=== PATIENT | male | born 1960 | race African-American/Black ===

== ENCOUNTER 2018-10-21 22:31 | Inpatient (IN) | payer OTHER ==
[2018-10-21] MEDS ORDERED: Nitroglycerin 2% Ointment 1 INCH/1 GM Packet ONE (23:02)
[2018-10-21 23:05] LABS: #Eosinphils 0.1 thou/uL (0.0-0.7); #Lymphocytes 2.5 thou/uL (1.20-3.40); #Monocytes 0.9 thou/uL (0.11-0.59); #Neutrophils 11.2 thou/uL (1.40-6.50); %Basophils 0.2 % (0.0-1.0); %Eosinophils 0.4 % (0.0-10.0); %Lymphocytes 17.1 % (21.0-51.0); %Monocytes 6.4 % (0.0-10.0); %Neutrophils 75.9 % (42.0-75.0); Hemoglobin 9.5 g/dL (14.0-18.0); Mean Corpuscular HGB CONC 31.4 g/dL (32.0-36.0); Mean Corpuscular Hemoglobin 25.1 pg (27.0-31.0); Mean Platelet Volume 6.9 fL (7.4-10.4); Platelet Count 594 thou/uL (130-400); RBC Distribution Width 15.9 % (11.5-14.5); Red Blood Cell (RBC) Count 3.79 mill/uL (4.70-6.10); White Blood Cell (WBC) Count 14.8 thou/uL (4.8-10.8)
[2018-10-21 23:23] LABS: ALT (SGPT) 19 U/L (8-55); AST (SGOT) 19 U/L (5-34); Albumin 3.5 g/dL (3.5-5.0); Alkaline Phosphatase 92 U/L (40-150); Anion Gap 17 mmol/L (10-20); BUN (Urea Nitrogen) 9 mg/dL (8.4-25.7); Bilirubin, Total 0.4 mg/dL (0.2-1.2); CK (CPK) 153 U/L (30-200); Calc. Creatinine Clearance 0 mL/min (70-130); Calcium 9.7 mg/dL (7.8-10.44); Carbon Dioxide 24 mmol/L (22-29); Chloride 103 mmol/L (98-107); Estimated GFR-MDRD Greater than 90; Globulin 4.4 g/dL (2.4-3.5); Glucose 85 mg/dL (70-105); Protein, Total 7.9 g/dL (6.0-8.3); Sodium 141 mmol/L (136-145)
--- NOTE | 2018-10-21 23:33 | RAD ---
PORTABLE AP CHEST X-RAY 10/21/18 HISTORY: Chest pain with history of [place]. COMPARISON: None available. FINDINGS: The cardiac silhouette and pulmonary vasculature are within normal limits for the portable technique of the study. Postsurgical changes related to CABG are again noted. Lungs are clear. Osseous structur es are intact. IMPRESSION: No acute cardiopulmonary process. POS: [facility]
[2018-10-21 23:48] LABS: CKMB 1.5 ng/mL (0-6.6)
[2018-10-22] MEDS ORDERED: HumaLOG 300 UNITS/3 ML VIAL SC PRN (01:42)
[2018-10-22] MEDS ORDERED: Dextrose 5% in Water 1,000 ML IV PRN (01:42)
[2018-10-22] MEDS ORDERED: Dextrose 50% Abboject 50 ML SYRINGE SLOW IVP PRN (01:42)
[2018-10-22] MEDS ORDERED: Acetaminophen 325 MG TAB PO PRN (02:30)
[2018-10-22] MEDS ORDERED: Sodium Chloride 0.9% 1,000 ML IV SCH (02:30)
[2018-10-22] MEDS ORDERED: Ondansetron ODT 4 MG TAB SL PRN (02:30)
[2018-10-22] MEDS ORDERED: Ondansetron PF 4 MG/2 ML Vial IVP PRN (02:30)
[2018-10-22 02:31] LABS: Critical Call Chem Troponin I RESULT DECREASING
[2018-10-22] MEDS ORDERED: Morphine 2 MG/ML SYRINGE SLOW IVP SCH (02:45)
--- NOTE | 2018-10-22 03:02 | HP ---
PRIMARY CARE DOCTOR: Patient is in alf. CODE STATUS: Full code. TIME OF EVALUATION: 1:30 a.m. CHIEF COMPLAINT: Chest pain. HISTORY OF PRESENT ILLNESS: This is a 58-year-old male patient, past medical history of coronary artery disease, status post CABG in March 2016. Patient came to the hospital after having chest pain that started around 7 p.m. when he was resting. No clear triggers. No alleviating factors. The pain was severe, substernal. The patient reported has not followed with a adobe cq developer as he does not have a adobe cq developer here. He also has a history of diabetes, hypertension, and severe peripheral vascular disease, and plan for amputation of the right lower extremity next week due to dry gangrene. REVIEW OF SYSTEMS: CONSTITUTIONAL: No fever, chills, or generalized weakness. RESPIRATORY: No cough, sputum production, or shortness of breath. CARDIOVASCULAR: Patient denies chest pain. No palpitations. GASTROINTESTINAL: No nausea, vomiting, diarrhea, or abdominal pain. SOUND CUTTER: No dizziness, headache, or feeling lightheaded. GENITOURINARY: No burning on urination. EXTREMITIES: No leg swelling. All other systems were reviewed and negative, except for the findings mentioned above. PAST MEDICAL HISTORY: As mentioned in the HPI. FAMILY HISTORY: Positive for father and grandfather with diabetes and heart problems. SOCIAL HISTORY: Patient is in alf. No drugs. No alcohol. ALLERGIES: NO KNOWN DRUG ALLERGIES REPORTED. MEDICATIONS: Unknown. PHYSICAL EXAMINATION: VITAL SIGNS: Heart rate 86, respiratory rate was 18, pain was 4/10, oxygen saturation was 99 on room air, and blood pressure 138/80. GENERAL APPEARANCE: The patient is alert, oriented, not in acute distress. HEENT: Eyes, normal conjunctivae. Moist oral mucosa. Anicteric. No JVD. RESPIRATORY: Bilateral air entry. No rales. No wheezes. Symmetric expansion. CARDIOVASCULAR: Normal rate, regular rhythm. No murmurs. No gallop. No edema. ABDOMEN: Soft. Normal bowel sounds. MUSCULOSKELETAL: Baseline range of motion and strength, except for the right lower extremity, there is a graft. The patient has dry gangrene due to severe PVD and is scheduled for amputation next week. SKIN: Warm, intact. No pallor. No rash, except for description in musculoskeletal section. Peripheral pulses are present. Capillary refill seems to be intact. NEUROLOGIC: No evidence of any new focal weakness. Patient has decreased sensation in the lower extremities. Cranial nerve seems to be intact. PSYCH: Patient is in good mood. No anxiety. Oriented, optimal judgment. DIAGNOSTIC DATA: EKG, patient has normal sinus rhythm with left ventricular hypertrophy with repolarization abnormalities. Ventricular rate 85, IL 126, QRS 88, QT corrected 471. Chest x-ray was reviewed. The patient has no acute cardiopulmonary process. The labs were reviewed. The patient has white count of 14.8, hemoglobin 9.5, MCV 80, and platelet count 494. Chemistry; sodium 141, potassium 3.0, chloride 103, carbon dioxide 24, anion gap 17, BUN 9, creatinine 0.7, GFR greater than 90, glucose 85, calcium 9.7, total bilirubin 0.4, AST 19, ALT 19, alkaline phosphatase is 92. CK 153 with troponin 0.342 that is a first draw. Serum total protein 7.9, albumin 3.5, globulin 4.4, albumin-globulin ratio is 0.8. ASSESSMENT AND PLAN: The patient had been placed in the hospital with the following medical problems: 1. Chest pain, rule out acute coronary syndrome. Patient has a strong history of previous coronary artery bypass graft, severe peripheral vascular disease, troponin 0.3. We will trend troponin. Might need Cardiology evaluation if his troponin continues to be positive. We will reconcile home medications, we will adjust treatment as needed. 2. Leukocytosis of unclear etiology. White count is 14.8. Patient does not have any evidence of sepsis at this point, could be related to underlying infections and dry gangrene or related to acute. 3. Chest pain. We will monitor, we will treat accordingly. 4. Normocytic anemia, unclear etiology. We will monitor. No need for any acute intervention at this time. 5. Hypokalemia with potassium 3.0. This is mild, we will replace electrolytes as needed. 6. Hbr-WA-hszdmtsjx myocardial infarction. Patient has troponin 0.342, we will trend troponin given his strong previous history of coronary artery disease. Unclear if this is type 1 or type 2 acute myocardial infarction. We will adjust treatment accordingly. 7. History of diabetes, seems to be controlled. We will place the patient on sliding scale. 8. Controlled hypertension. We will monitor: We will reconcile home medications once updated. Treat accordingly. 9. Deep venous thrombosis prophylaxis. 10. Severe peripheral vascular disease with dry gangrene. Plan for amputation of the right lower extremity a week from now, we will monitor, no need for any acute intervention at this point since the patient is scheduled with surgeons for next week. Job ID: [id number]
[2018-10-22] MEDS ORDERED: Sodium Chloride 0.9% 10 ML ONE (03:21)
[2018-10-22 05:33] LABS: Troponin I 0.248 ng/mL (< 0.028)
[2018-10-22] MEDS ORDERED: Aspirin 325 MG TAB PO SCH (08:00)
[2018-10-22] MEDS ORDERED: Non-Formulary Item 1 EACH (Atorvastatin Calcium [Atorvastatin Calcium] 80 MG) PO SCH (09:00)
[2018-10-22] MEDS ORDERED: Non-Formulary Item 1 EACH (Ferrous Sulfate [Ferrous Sulfate] 325 MG) PO SCH (09:00)
[2018-10-22] MEDS ORDERED: SODIUM HYPOCHLORITE TOP SCH (09:00)
[2018-10-22] MEDS ORDERED: Carvedilol 25 MG TAB PO SCH (09:00)
[2018-10-22] MEDS ORDERED: Aspirin 81 mg Enteric Coated Tablet PO SCH (09:00)
[2018-10-22] MEDS ORDERED: Hydrochlorothiazide 25 MG TAB PO SCH (09:00)
[2018-10-22] MEDS ORDERED: Potassium Chloride 20 MEQ TAB PO SCH (09:00)
[2018-10-22] MEDS ORDERED: Non-Formulary Item 1 EACH (Ranitidine Hcl [Ranitidine Hcl] 150 MG) PO SCH (09:00)
[2018-10-22] MEDS: Docusate 100 MG CAP PO SCH ×2 (09:19→20:43)
[2018-10-22] MEDS: Famotidine 20 MG TAB PO SCH ×2 (09:19→20:44)
[2018-10-22] MEDS: Amlodipine 10 MG TAB PO SCH (09:19)
[2018-10-22] MEDS: DULoxetine 60 MG CAP PO SCH (09:19)
[2018-10-22] MEDS: Folic Acid 1 MG TAB PO SCH (09:20)
[2018-10-22] MEDS: Lisinopril 20 MG TAB PO SCH (09:20)
[2018-10-22] MEDS: Ferrous Sulfate 325 MG TAB PO SCH ×3 (09:20→20:44)
[2018-10-22] MEDS: Morphine 2 MG/ML SYRINGE SLOW IVP PRN ×3 (09:21→20:45)
[2018-10-22 09:57] LABS: Magnesium 1.8 mg/dL (1.6-2.6); Potassium 3.2 mmol/L (3.5-5.1)
[2018-10-22] MEDS: NPH, Human Insulin Isophane 300 UNIT/3 ML VIAL SC SCH ×2 (12:25→20:45)
[2018-10-22] MEDS: TICAGRELOR 90 MG TABLET PO SCH ×2 (12:27→20:43)
[2018-10-22] MEDS: Potassium Chloride 20 MEQ TAB PO SCH ×2 (12:34→16:08)
[2018-10-22] MEDS: HYDROcodone/Acetaminophen 5/325 mg Tablet PO PRN ×3 (12:34→23:11)
[2018-10-22 14:45] LABS: CKMB 1.2 ng/mL (0-6.6)
[2018-10-22] MEDS ORDERED: Labetalol HCl 100 MG/20 ML VIAL SLOW IVP PRN (16:53)
[2018-10-22] MEDS: Carvedilol 25 MG TAB PO SCH (20:43)
[2018-10-22] MEDS: Atorvastatin Calcium 40 MG TAB PO SCH (20:44)
[2018-10-23] MEDS: Morphine 2 MG/ML SYRINGE SLOW IVP PRN ×2 (03:10→08:55)
[2018-10-23 05:36] LABS: Anion Gap 15 mmol/L (10-20); BUN (Urea Nitrogen) 11 mg/dL (8.4-25.7); Calc. Creatinine Clearance 114 mL/min (70-130); Calcium 9.6 mg/dL (7.8-10.44); Carbon Dioxide 20 mmol/L (22-29); Chloride 103 mmol/L (98-107); Estimated GFR-MDRD Greater than 90; Glucose 98 mg/dL (70-105); Potassium 4.2 mmol/L (3.5-5.1); Sodium 134 mmol/L (136-145)
[2018-10-23] MEDS: HYDROcodone/Acetaminophen 5/325 mg Tablet PO PRN ×4 (06:38→20:33)
[2018-10-23] MEDS ORDERED: Sodium Chloride 0.65% Nasal 44 ML BOT EA NARE PRN (07:21)
[2018-10-23] MEDS ORDERED: Loperamide HCl 2 MG CAP PO PRN (07:21)
[2018-10-23] MEDS ORDERED: Senokot S 8.6-50 MG TAB PO PRN (07:21)
[2018-10-23] MEDS ORDERED: Bisacodyl 5 MG TAB PO PRN (07:21)
[2018-10-23] MEDS ORDERED: Acetaminophen 500 MG TAB PO PRN (07:21)
[2018-10-23] MEDS ORDERED: Nitroglycerin 0.4 MG TAB (25 Tab Bottle) SL PRN (07:21)
[2018-10-23] MEDS ORDERED: Loratadine 10 MG TAB PO PRN (07:21)
[2018-10-23] MEDS ORDERED: Cepastat Lozenges 1 LOZ PO PRN (07:21)
[2018-10-23] MEDS ORDERED: hydrALAZINE 20 MG/ML VIAL SLOW IVP PRN (07:21)
[2018-10-23] MEDS ORDERED: Zolpidem Tartrate 5 MG TAB PO PRN (07:21)
[2018-10-23] MEDS ORDERED: Ondansetron ODT 4 MG TAB PO PRN (07:21)
[2018-10-23] MEDS ORDERED: Ondansetron PF 4 MG/2 ML Vial IVP PRN (07:21)
[2018-10-23] MEDS ORDERED: Artificial Tears 18 DROP/0.9 ML EA EYE PRN (07:21)
[2018-10-23] MEDS ORDERED: Eucerin (Mineral Oil/Petrolatum,White) 30 gm Jar TOP PRN (07:21)
[2018-10-23] MEDS ORDERED: Diabetic Tussin 200 MG/10 ML UDCUP PO PRN (07:21)
[2018-10-23 08:31] LABS: #Eosinphils 0.1 thou/uL (0.0-0.7); #Lymphocytes 2.3 thou/uL (1.20-3.40); #Monocytes 1.2 thou/uL (0.11-0.59); #Neutrophils 9.6 thou/uL (1.40-6.50); %Basophils 0.2 % (0.0-1.0); %Eosinophils 0.4 % (0.0-10.0); %Lymphocytes 17.6 % (21.0-51.0); %Monocytes 8.9 % (0.0-10.0); %Neutrophils 72.9 % (42.0-75.0); Hemoglobin 9.7 g/dL (14.0-18.0); Mean Corpuscular HGB CONC 31.2 g/dL (32.0-36.0); Mean Corpuscular Hemoglobin 25.1 pg (27.0-31.0); Mean Corpuscular Volume 80.5 fL (78.0-98.0); Mean Platelet Volume 7.1 fL (7.4-10.4); Platelet Count 525 thou/uL (130-400); RBC Distribution Width 16.4 % (11.5-14.5); Red Blood Cell (RBC) Count 3.86 mill/uL (4.70-6.10); White Blood Cell (WBC) Count 13.2 thou/uL (4.8-10.8)
[2018-10-23] MEDS: Lisinopril 20 MG TAB PO SCH ×2 (08:53→20:32)
[2018-10-23] MEDS: Ferrous Sulfate 325 MG TAB PO SCH ×3 (08:53→20:32)
[2018-10-23] MEDS: Carvedilol 25 MG TAB PO SCH ×2 (08:53→20:33)
[2018-10-23] MEDS: Docusate 100 MG CAP PO SCH ×2 (08:54→20:34)
[2018-10-23] MEDS: Amlodipine 10 MG TAB PO SCH (08:54)
[2018-10-23] MEDS: TICAGRELOR 90 MG TABLET PO SCH (08:54)
[2018-10-23] MEDS: DULoxetine 60 MG CAP PO SCH (08:54)
[2018-10-23] MEDS: Folic Acid 1 MG TAB PO SCH (08:54)
[2018-10-23] MEDS: Famotidine 20 MG TAB PO SCH ×2 (08:54→20:32)
[2018-10-23] MEDS: NPH, Human Insulin Isophane 300 UNIT/3 ML VIAL SC SCH ×2 (09:46→20:40)
--- NOTE | 2018-10-23 10:11 | PDOC.PN ---
- Subjective Encounter Start Date: 10/23/18 Encounter Start Time: 08:00 -: old records requested/rev pt has pain in his right leg, no chest pain, has fever Patient seen and examined. No overnight events - Objective Resuscitation Status - Order Detail: 10/23/18 07:21 Resuscitation Status Routine Resuscitation Status: FULL: Full Resuscitation MAR Reviewed: Yes Vital Signs & Weight: Vital Signs (12 hours) Temp Pulse Resp BP Pulse Ox 10/23/18 07:35 100.2 F H 88 16 165/79 H 95 10/23/18 06:38 87 18 159/79 H 10/23/18 03:07 100 F H 84 18 144/74 H 95 10/22/18 23:05 100.4 F H 80 16 129/73 99 Weight Admit Weight 178 lb Weight 176 lb 6.4 oz I&O: 10/22/18 10/23/18 10/24/18 06:59 06:59 06:59 Intake Total 311 1652 Output Total 625 1800 Balance -314 -148 Result Diagrams: 10/23/18 04:57 10/23/18 04:57 Additional Labs: Accuchecks 10/23/18 10/22/18 10/22/18 05:38 20:37 16:45 POC Glucose 115 H 145 H 128 H 10/22/18 10:49 POC Glucose 110 EKG Reviewed by me: Yes (nsr) Phys Exam - Physical Examination Constitutional: NAD HEENT: PERRLA, moist MMs, sclera anicteric Neck: no JVD, supple Respiratory: no wheezing, no rales, no rhonchi Cardiovascular: RRR, no significant murmur, no rub Gastrointestinal: soft, non-tender, no distention, positive bowel sounds Musculoskeletal: no edema right foot with dressing Neurological: non-focal, normal sensation Lymphatic: no nodes Psychiatric: normal affect, A&O x 3 Skin: no rash, normal turgor Dx/Plan (1) NSTEMI (non-ST elevated myocardial infarction) Code(s): I21.4 - NON-ST ELEVATION (NSTEMI) MYOCARDIAL INFARCTION Status: Acute (2) Diabetic infection of right foot Code(s): E11.628 - TYPE 2 DIABETES MELLITUS WITH OTHER SKIN COMPLICATIONS; L08.9 - LOCAL INFECTION OF THE SKIN AND SUBCUTANEOUS TISSUE, UNSP Status: Acute (3) SIRS (systemic inflammatory response syndrome) Code(s): R65.10 - SIRS OF NON-INFECTIOUS ORIGIN W/O ACUTE ORGAN DYSFUNCTION Status: Acute (4) Hypokalemia Code(s): E87.6 - HYPOKALEMIA Status: Acute (5) Anemia, normocytic normochromic Code(s): D64.9 - ANEMIA, UNSPECIFIED Status: Chronic (6) Anxiety and depression Code(s): F41.9 - ANXIETY DISORDER, UNSPECIFIED; F32.9 - MAJOR DEPRESSIVE DISORDER, SINGLE EPISODE, UNSPECIFIED Status: Chronic (7) Diabetes type 2, controlled Code(s): E11.9 - TYPE 2 DIABETES MELLITUS WITHOUT COMPLICATIONS Status: Chronic (8) Dyslipidemia Code(s): E78.5 - HYPERLIPIDEMIA, UNSPECIFIED Status: Chronic (9) GERD (gastroesophageal reflux disease) Code(s): K21.9 - GASTRO-ESOPHAGEAL REFLUX DISEASE WITHOUT ESOPHAGITIS Status: Chronic (10) Hypertension Code(s): I10 - ESSENTIAL (PRIMARY) HYPERTENSION Status: Chronic (11) PAD (peripheral artery disease) Code(s): I73.9 - PERIPHERAL VASCULAR DISEASE, UNSPECIFIED Status: Chronic - Plan cont current plan of care, continue antibiotics * cardiology on case and currently on medical therapy * further plan of intervention will defer to cardiology. * will start zosyn for diabetic foot infection * will consult general surgery for evaluation as he may need amputation * medication reviewed as below * symptomatic treatment * wound care Review of Systems - Review of Systems Constitutional: fever. negative: chills, sweats, weakness, malaise, other ENT: negative: Ear Pain, Ear Discharge, Nose Pain, Nose Discharge, Nose Congestion, Mouth Pain, Mouth Swelling, Throat Pain, Throat Swelling, Other Respiratory: negative: Cough, Dry, Shortness of Breath, Hemoptysis, SOB with Excertion, Pleuritic Pain, Sputum, Wheezing Cardiovascular: negative: chest pain, palpitations, orthopnea, paroxysmal nocturnal dyspnea, edema, light headedness, other Gastrointestinal: negative: Nausea, Vomiting, Abdominal Pain, Diarrhea, Constipation, Melena, Hematochezia, Other Genitourinary: negative: Dysuria, Frequency, Incontinence, Hematuria, Retention , Other Musculoskeletal: Leg Pain, Foot Pain. negative: Neck Pain, Shoulder Pain, Arm Pain, Back Pain, Hand Pain, Other - Medications/Allergies Allergies/Adverse Reactions: Allergies Allergy/AdvReac Type Severity Reaction Status Date / Time No Known Drug Allergies Allergy Verified 10/22/18 05:11 Medications: Current Medications Acetaminophen (Tylenol) 500 mg PO Q6H PRN PRN Reason: Mild Pain (1-3) Hydrocodone Bitart/Acetaminophen ([place] 5/325) 1 tab PO Q4H PRN PRN Reason: Moderate Pain (4-6) Last Admin: 10/23/18 06:38 Dose: 1 tab Amlodipine Besylate (Norvasc) 10 mg PO DAILY [facility] Last Admin: 10/23/18 08:54 Dose: 10 mg Artificial Tears (Tears Naturale) 2 drop EA EYE PRN PRN PRN Reason: Dry Eyes Aspirin (Aspirin Chewable) 81 mg PO QAM[facility] Last Admin: 10/23/18 08:54 Dose: 81 mg Atorvastatin Calcium (Lipitor) 80 mg PO HS [facility] Last Admin: 10/22/18 20:44 Dose: 80 mg Bisacodyl (Dulcolax) 10 mg PO DAILYPRN PRN PRN Reason: Constipation Carvedilol (Coreg) 50 mg PO BID [facility] Last Admin: 10/23/18 08:53 Dose: 50 mg Dextrose/Water (Dextrose 50%) 25 gm SLOW IVP PRN PRN PRN Reason: Hypoglycemia Docusate Sodium (Colace) 100 mg PO BID [facility] Last Admin: 10/23/18 08:54 Dose: 100 mg Duloxetine HCl (Cymbalta) 60 mg PO DAILY [facility] Last Admin: 10/23/18 08:54 Dose: 60 mg Famotidine (Pepcid) 20 mg PO BID [facility] Last Admin: 10/23/18 08:54 Dose: 20 mg Ferrous Sulfate (Feosol) 325 mg PO TID [facility] Last Admin: 10/23/18 08:53 Dose: 325 mg Folic Acid (Folvite) 1 mg PO DAILY [facility] Last Admin: 10/23/18 08:54 Dose: 1 mg Glucagon (Glucagon) 1 mg IM PRN PRN PRN Reason: Hypoglycemia Guaifenesin (Robitussin Sf) 200 mg PO Q4H PRN PRN Reason: Cough Hydralazine HCl (Apresoline) 10 mg SLOW IVP Q4H PRN PRN Reason: SBP > 180 and HR < 70 Dextrose/Water (D5w) 1,000 mls @ 0 mls/hr IV .Q0M PRN PRN Reason: Hypoglycemia Insulin Human Lispro (Humalog) 0 units SC .MILD SLIDING SCALE PRN PRN Reason: Mild Correctional Scale Insulin Human NPH (Humulin N) 12 unit SC QPM [facility] Last Admin: 10/22/18 20:45 Dose: 12 unit Insulin Human NPH (Humulin N) 14 unit SC QAM [facility] Last Admin: 10/23/18 09:46 Dose: 14 unit Labetalol HCl (Normodyne) 10 mg SLOW IVP Q4H PRN PRN Reason: Systolic BP > 180 Lisinopril (Zestril) 20 mg PO DAILY [facility] Last Admin: 10/23/18 08:53 Dose: 20 mg Loperamide HCl (Imodium) 2 mg PO PRN PRN PRN Reason: Diarrhea/Loose Stools Loratadine (Claritin) 10 mg PO DAILYPRN PRN PRN Reason: Sinus Symptoms Mineral Oil/White Petrolatum (Eucerin Cream) 0 gm TOP BIDPRN PRN PRN Reason: Dry Skin Nitroglycerin (Nitrostat) 0.4 mg SL Q5MIN PRN PRN Reason: Chest Pain Ondansetron HCl (Zofran Odt) 4 mg PO Q6H PRN PRN Reason: Nausea/Vomiting Ondansetron HCl (Zofran) 4 mg IVP Q6H PRN PRN Reason: Nausea/Vomiting [Anasept 0.057% Gel] (1 Applic)) 0 each TOP DAILY [facility] Senna/Docusate Sodium (Senokot S) 2 tab PO BID PRN PRN Reason: Constipation Sodium Chloride (Flush - Normal Saline) 10 ml IVF Q12HR [facility] Last Admin: 10/23/18 08:58 Dose: 10 ml Sodium Chloride (Flush - Normal Saline) 10 ml IVF PRN PRN PRN Reason: Saline Flush Last Admin: 10/23/18 03:11 Dose: 10 ml Sodium Chloride ([place] Nasal [place] 0.65%) 0 ml EA NARE QIDPRN PRN PRN Reason: Nasal Congestion Throat Lozenges (Cepastat Lozenges) 1 miguel angel PO Q2H PRN PRN Reason: Sore Throat Ticagrelor (Brilinta) 90 mg PO BID [facility] Last Admin: 10/23/18 08:54 Dose: 90 mg Zolpidem Tartrate (Ambien) 5 mg PO HSPRN PRN PRN Reason: Insomnia
[2018-10-23 12:04] LABS: Bilirubin Negative (Negative); Blood, Urine Negative (Negative); Clarity CLEAR (Clear); Glucose, Urine (Dipstick) Negative (Negative); Leukocyte Negative (Negative); Nitrite Negative (Negative); Protein, Urine (Dipstick) 300 mg/dL (Neg-Trace); Specific Gravity, Urine 1.025 (1.002-1.036)
[2018-10-23 12:06] LABS: Bacteria/HPF None Seen HPF (None Seen); Hyaline Casts/LPF 0-3 HYALINE CAST LPF (0-3 Hyaline); Pathc Cast-AUWi Flag 0.58 (0-2.49); Squamous Epithelial 0-3 HPF (0-3); WBC/HPF 0-3 HPF (0-3)
[2018-10-23 12:11] LABS: Renal Epithelial None Seen HPF (0-3); Transitional Epithelial NONE SEEN HPF (0-3)
[2018-10-23] MEDS ORDERED: ALPRAZolam 0.25 MG TAB PO SCH (12:15)
[2018-10-23] MEDS: Piperacillin/Tazobactam 3.375 GM in Sodium Chloride 0.9% 100 ML IVPB SCH ×2 (12:29→18:14)
[2018-10-23] MEDS ORDERED: Clopidogrel Bisulfate 75 MG TAB ONE (16:30)
--- NOTE | 2018-10-23 16:55 | HP ---
HISTORY OF PRESENT ILLNESS: Devyn Ramos is a 58-year-old black male, [employer] inmate, incarcerated for 37 years. The patient hopes to be released in 8 to 9 years. He has history of PAD. He has been seen at [facility] and was scheduled to have a right [id number] amputation this week. He was waiting for cardiac clearance, when it apparently has been granted. The patient had a coronary artery bypass grafting in 2015, apparently had a stent in 2017. He was evaluated by [facility] Cardiac Service and apparently cleared to have surgery this week for his leg. The patient has dry gangrene of his right 3rd, 4th, and 5th toes. He has been admitted this hospitalization for chest pain and is being evaluated by the hospitalist service. The patient has pain in his right leg extending from his foot to below his knee. He apparently had interventional procedures in [place] with a stent placed in his SFA, which rapidly occluded. He was told that there was nothing else they could do, and they recommended [id number] amputation to alleviate his pain. This patient has a history of diabetes, hypertension, and PAD. The patient is admitted this hospitalization, and my plan would be to perform a right [id number] amputation this week. I have talked to the prisoner guards who have connected with the [facility] verifying the history obtained from the patient. They are unable to provide any cardiac history. Dr. Hollingsworth has been consulted. ALLERGIES: NONE. SOCIAL HISTORY: Tobacco, none. Abuse prior to incarceration 37 years ago. Alcohol, none. MEDICATIONS: 1. Lisinopril. 2. Hydrochlorothiazide. 3. Folic acid. 4. Colace. 5. Carvedilol. 6. Atorvastatin. 7. Aspirin. 8. Ranitidine. 9. Iron sulfate. 10. Norvasc. 11. . 12. Brilinta. 13. Duloxetine. 14. Humulin insulin 12 units p.m. and a.m. PAST SURGICAL HISTORY: 1. Coronary artery bypass grafting in 2015. 2. Coronary stent in 2017. 3. Cardiology evaluation at [facility] recently. 4. SFA stenting, right, [facility], nondurable and thrombosed with continued rest pain. PAST MEDICAL HISTORY: PAD, coronary artery disease, insulin-dependent diabetes mellitus, and hypertension. PHYSICAL EXAMINATION: VITAL SIGNS: 5 feet 6 inches, 176 pounds, 28 BMI, 99.6 degrees, 91, 135/74. HEAD, EARS, EYES, NOSE, AND THROAT: Unremarkable. LUNGS: Clear to auscultation. CARDIAC: Regular rate and rhythm without murmur or gallop. ABDOMEN: Soft and nontender. Palpable femoral pulses bilaterally. Scar in his right groin. EXTREMITIES: Not palpable right popliteal nor distal pulses. Nondopplerable pedal pulses. He is able to move his ankle. He has pain in his right leg to below the knee. He has a dopplerable only popliteal pulse. ASSESSMENT AND PLAN: 1. Ischemic rest pain secondary peripheral artery disease, arteriosclerotic vascular disease, right leg, not amenable to interventional in [place]. We would recommend right [id number] amputation. We will hold his Brilinta for now and resume it postoperatively. Risks of infection, bleeding, and reoperation explained. 2. Coronary artery disease. Await Cardiology visit, but apparently, the patient has been seen by Cardiology in [facility]. Should be able to proceed with the procedure without problems. We will plan on amputation probably early this week, Wednesday or Wednesday pending cardiac evaluation clearance. 3. Diabetes mellitus. 4. Hypertension. Job ID: [id number]
[2018-10-23] MEDS: Morphine 4 MG/ML VIAL SLOW IVP PRN (18:14)
[2018-10-23] MEDS: Atorvastatin Calcium 40 MG TAB PO SCH (20:34)
[2018-10-23] MEDS: ALPRAZolam 0.25 MG TAB PO SCH (22:44)
[2018-10-23] MEDS ORDERED: Acetaminophen 325 MG TAB PO SCH (22:45)
[2018-10-24] MEDS: HYDROcodone/Acetaminophen 5/325 mg Tablet PO PRN ×3 (00:47→15:25)
[2018-10-24] MEDS: Piperacillin/Tazobactam 3.375 GM in Sodium Chloride 0.9% 100 ML IVPB SCH ×4 (00:48→17:54)
[2018-10-24] MEDS: Morphine 4 MG/ML VIAL SLOW IVP PRN ×3 (04:17→17:58)
[2018-10-24 07:23] LABS: Hemoglobin 9.8 g/dL (14.0-18.0); Mean Corpuscular Hemoglobin 25.1 pg (27.0-31.0); Mean Corpuscular Volume 80.8 fL (78.0-98.0); Mean Platelet Volume 7.1 fL (7.4-10.4); Platelet Count 545 thou/uL (130-400); RBC Distribution Width 16.2 % (11.5-14.5); Red Blood Cell (RBC) Count 3.89 mill/uL (4.70-6.10); White Blood Cell (WBC) Count 17.9 thou/uL (4.8-10.8)
[2018-10-24 07:28] LABS: INR-International Normal Ratio 1.1; Prothrombin Time 14.7 SEC (12.0-14.7)
[2018-10-24 07:54] LABS: Band 1 % (5-11); Eosinophils 1 % (0-10); Hypochromia SLIGHT = 6-15 cells (100X) (0-5/hpf); Lymphocytes 18 % (21-51); MDiff Complete? YES; Monocytes 4 % (0-10); Neutrophil 76 % (42-75); Platelet Morphology Comment Appears Increased
[2018-10-24 07:57] LABS: Anion Gap 18 mmol/L (10-20); BUN (Urea Nitrogen) 13 mg/dL (8.4-25.7); Calc. Creatinine Clearance 93 mL/min (70-130); Calcium 9.8 mg/dL (7.8-10.44); Carbon Dioxide 20 mmol/L (22-29); Cardiac Risk 3.6 (Less than 4.5); Chloride 101 mmol/L (98-107); Cholesterol 94 mg/dl (< 200 Desired); Estimated GFR-MDRD Greater than 90; Glucose 84 mg/dL (70-105); HDL Cholesterol 26 mg/dL (>60 Neg Risk); LDL Cholesterol, Calculated 43 mg/dL; Potassium 4.2 mmol/L (3.5-5.1); Sodium 135 mmol/L (136-145); Triglycerides 125 mg/dL (Less than 150)
[2018-10-24] MEDS: NPH, Human Insulin Isophane 300 UNIT/3 ML VIAL SC SCH (08:14)
[2018-10-24] MEDS: Amlodipine 10 MG TAB PO SCH (08:15)
[2018-10-24] MEDS: Ferrous Sulfate 325 MG TAB PO SCH ×2 (08:15→15:26)
[2018-10-24] MEDS: Lisinopril 20 MG TAB PO SCH (08:15)
[2018-10-24] MEDS: ALPRAZolam 0.25 MG TAB PO SCH (08:15)
[2018-10-24] MEDS: Folic Acid 1 MG TAB PO SCH (08:15)
[2018-10-24] MEDS: DULoxetine 60 MG CAP PO SCH (08:15)
[2018-10-24] MEDS: Docusate 100 MG CAP PO SCH (08:15)
[2018-10-24] MEDS: Carvedilol 25 MG TAB PO SCH (09:39)
[2018-10-24] MEDS: Famotidine 20 MG TAB PO SCH (09:39)
--- NOTE | 2018-10-24 10:36 | PDOC.PN ---
- Subjective Encounter Start Date: 10/24/18 Encounter Start Time: 07:50 pt has severe resting pain in right leg, no chest pain, no fever Patient seen and examined. No overnight events - Objective Resuscitation Status - Order Detail: 10/23/18 07:21 Resuscitation Status Routine Resuscitation Status: FULL: Full Resuscitation MAR Reviewed: Yes Vital Signs & Weight: Vital Signs (12 hours) Temp Pulse Resp BP BP BP Pulse Ox 10/24/18 08:15 81 135/82 10/24/18 08:00 100.0 F H 92 18 126/75 99 10/24/18 04:07 100.3 F H 81 16 137/82 99 10/24/18 00:05 100.4 F H 83 16 127/67 96 10/23/18 22:39 102.2 F H Weight Admit Weight 178 lb Weight 177 lb 3.2 oz I&O: 10/23/18 10/24/18 10/25/18 06:59 06:59 06:59 Intake Total 1652 2590.5 Output Total 1800 1700 Balance -148 890.5 Result Diagrams: 10/24/18 07:09 10/24/18 07:09 Additional Labs: Accuchecks 10/24/18 10/23/18 10/23/18 05:34 20:40 16:22 POC Glucose 94 128 H 140 H 10/23/18 10:47 POC Glucose 214 H EKG Reviewed by me: Yes (nsr) Phys Exam - Physical Examination Constitutional: NAD HEENT: PERRLA, moist MMs, sclera anicteric Neck: no JVD, supple Respiratory: no wheezing, no rales, no rhonchi Cardiovascular: RRR, no significant murmur, no rub Gastrointestinal: soft, non-tender, no distention, positive bowel sounds right foot with dressing Neurological: non-focal, normal sensation, moves all 4 limbs Lymphatic: no nodes Psychiatric: normal affect, A&O x 3 Skin: no rash, normal turgor Dx/Plan (1) NSTEMI (non-ST elevated myocardial infarction) Code(s): I21.4 - NON-ST ELEVATION (NSTEMI) MYOCARDIAL INFARCTION Status: Acute (2) Diabetic infection of right foot Code(s): E11.628 - TYPE 2 DIABETES MELLITUS WITH OTHER SKIN COMPLICATIONS; L08.9 - LOCAL INFECTION OF THE SKIN AND SUBCUTANEOUS TISSUE, UNSP Status: Acute (3) SIRS (systemic inflammatory response syndrome) Code(s): R65.10 - SIRS OF NON-INFECTIOUS ORIGIN W/O ACUTE ORGAN DYSFUNCTION Status: Acute (4) Hypokalemia Code(s): E87.6 - HYPOKALEMIA Status: Acute (5) Anemia, normocytic normochromic Code(s): D64.9 - ANEMIA, UNSPECIFIED Status: Chronic (6) Anxiety and depression Code(s): F41.9 - ANXIETY DISORDER, UNSPECIFIED; F32.9 - MAJOR DEPRESSIVE DISORDER, SINGLE EPISODE, UNSPECIFIED Status: Chronic (7) Diabetes type 2, controlled Code(s): E11.9 - TYPE 2 DIABETES MELLITUS WITHOUT COMPLICATIONS Status: Chronic (8) Dyslipidemia Code(s): E78.5 - HYPERLIPIDEMIA, UNSPECIFIED Status: Chronic (9) GERD (gastroesophageal reflux disease) Code(s): K21.9 - GASTRO-ESOPHAGEAL REFLUX DISEASE WITHOUT ESOPHAGITIS Status: Chronic (10) Hypertension Code(s): I10 - ESSENTIAL (PRIMARY) HYPERTENSION Status: Chronic (11) PAD (peripheral artery disease) Code(s): I73.9 - PERIPHERAL VASCULAR DISEASE, UNSPECIFIED Status: Chronic - Plan cont current plan of care, continue antibiotics * continue empiric vancomycin and zosyn * wound care * pain control * pt has resting ischemic pain uncontrolled, he will need eventual amputation * general surgery recommendation appreciated * await cardiology clearance for surgery * medication reviewed as below * symptomatic treatment. Review of Systems - Review of Systems Eyes: negative: Pain, Vision Change, Conjunctivae Inflammation, Eyelid Inflammation, Redness, Other ENT: negative: Ear Pain, Ear Discharge, Nose Pain, Nose Discharge, Nose Congestion, Mouth Pain, Mouth Swelling, Throat Pain, Throat Swelling, Other Respiratory: negative: Cough, Dry, Shortness of Breath, Hemoptysis, SOB with Excertion, Pleuritic Pain, Sputum, Wheezing Cardiovascular: negative: chest pain, palpitations, orthopnea, paroxysmal nocturnal dyspnea, edema, light headedness, other Gastrointestinal: negative: Nausea, Vomiting, Abdominal Pain, Diarrhea, Constipation, Melena, Hematochezia, Other Genitourinary: negative: Dysuria, Frequency, Incontinence, Hematuria, Retention , Other Musculoskeletal: Leg Pain. negative: Neck Pain, Shoulder Pain, Arm Pain, Back Pain, Hand Pain, Foot Pain, Other - Medications/Allergies Allergies/Adverse Reactions: Allergies Allergy/AdvReac Type Severity Reaction Status Date / Time No Known Drug Allergies Allergy Verified 10/22/18 05:11 Medications: Current Medications Acetaminophen (Tylenol) 500 mg PO Q6H PRN PRN Reason: Mild Pain (1-3) Hydrocodone Bitart/Acetaminophen ([place] 5/325) 1 tab PO Q4H PRN PRN Reason: Moderate Pain (4-6) Last Admin: 10/24/18 09:39 Dose: 1 tab Alprazolam (Xanax) 0.25 mg PO BID PENDING SALE TO [facility] Last Admin: 10/24/18 08:15 Dose: 0.25 mg Amlodipine Besylate (Norvasc) 10 mg PO DAILY PENDING SALE TO [facility] Last Admin: 10/24/18 08:15 Dose: 10 mg Artificial Tears (Tears Naturale) 2 drop EA EYE PRN PRN PRN Reason: Dry Eyes Aspirin (Aspirin Chewable) 81 mg PO QAM-[facility] Last Admin: 10/24/18 08:15 Dose: 81 mg Atorvastatin Calcium (Lipitor) 80 mg PO HS PENDING SALE TO [facility] Last Admin: 10/23/18 20:34 Dose: 80 mg Bisacodyl (Dulcolax) 10 mg PO DAILYPRN PRN PRN Reason: Constipation Carvedilol (Coreg) 50 mg PO BID PENDING SALE TO [facility] Last Admin: 10/24/18 09:39 Dose: 50 mg Dextrose/Water (Dextrose 50%) 25 gm SLOW IVP PRN PRN PRN Reason: Hypoglycemia Docusate Sodium (Colace) 100 mg PO BID PENDING SALE TO [facility] Last Admin: 10/24/18 08:15 Dose: 100 mg Duloxetine HCl (Cymbalta) 60 mg PO DAILY PENDING SALE TO [facility] Last Admin: 10/24/18 08:15 Dose: 60 mg Famotidine (Pepcid) 20 mg PO BID PENDING SALE TO [facility] Last Admin: 10/24/18 09:39 Dose: 20 mg Ferrous Sulfate (Feosol) 325 mg PO TID PENDING SALE TO [facility] Last Admin: 10/24/18 08:15 Dose: 325 mg Folic Acid (Folvite) 1 mg PO DAILY PENDING SALE TO [facility] Last Admin: 10/24/18 08:15 Dose: 1 mg Glucagon (Glucagon) 1 mg IM PRN PRN PRN Reason: Hypoglycemia Guaifenesin (Robitussin Sf) 200 mg PO Q4H PRN PRN Reason: Cough Hydralazine HCl (Apresoline) 10 mg SLOW IVP Q4H PRN PRN Reason: SBP > 180 and HR < 70 Dextrose/Water (D5w) 1,000 mls @ 0 mls/hr IV .Q0M PRN PRN Reason: Hypoglycemia Piperacillin Sod/Tazobactam (Sod 3.375 gm/ Sodium Chloride) 100 mls @ 200 mls/ hr IVPB Q6HR PENDING SALE TO [facility] Last Admin: 10/24/18 05:59 Dose: 100 mls Insulin Human Lispro (Humalog) 0 units SC .MILD SLIDING SCALE PRN PRN Reason: Mild Correctional Scale Insulin Human NPH (Humulin N) 12 unit SC QPM PENDING SALE TO [facility] Last Admin: 10/23/18 20:40 Dose: 12 unit Insulin Human NPH (Humulin N) 14 unit SC QAM PENDING SALE TO [facility] Last Admin: 10/24/18 08:14 Dose: 14 unit Labetalol HCl (Normodyne) 10 mg SLOW IVP Q4H PRN PRN Reason: Systolic BP > 180 Lisinopril (Zestril) 20 mg PO BID PENDING SALE TO [facility] Last Admin: 10/24/18 08:15 Dose: 20 mg Loperamide HCl (Imodium) 2 mg PO PRN PRN PRN Reason: Diarrhea/Loose Stools Loratadine (Claritin) 10 mg PO DAILYPRN PRN PRN Reason: Sinus Symptoms Mineral Oil/White Petrolatum (Eucerin Cream) 0 gm TOP BIDPRN PRN PRN Reason: Dry Skin Morphine Sulfate (Morphine) 2 mg SLOW IVP Q4H PRN PRN Reason: PAIN IF UNABLE TO TAKE PO Last Admin: 10/24/18 04:17 Dose: 2 mg Nitroglycerin (Nitrostat) 0.4 mg SL Q5MIN PRN PRN Reason: Chest Pain Ondansetron HCl (Zofran Odt) 4 mg PO Q6H PRN PRN Reason: Nausea/Vomiting Ondansetron HCl (Zofran) 4 mg IVP Q6H PRN PRN Reason: Nausea/Vomiting Senna/Docusate Sodium (Senokot S) 2 tab PO BID PRN PRN Reason: Constipation Sodium Chloride (Flush - Normal Saline) 10 ml IVF Q12HR PENDING SALE TO [facility] Last Admin: 10/24/18 08:16 Dose: 10 ml Sodium Chloride (Flush - Normal Saline) 10 ml IVF PRN PRN PRN Reason: Saline Flush Last Admin: 10/24/18 04:20 Dose: 10 ml Sodium Chloride ([place] Nasal [place] 0.65%) 0 ml EA NARE QIDPRN PRN PRN Reason: Nasal Congestion Throat Lozenges (Cepastat Lozenges) 1 miguel angel PO Q2H PRN PRN Reason: Sore Throat Zolpidem Tartrate (Ambien) 5 mg PO HSPRN PRN PRN Reason: Insomnia
[2018-10-24 12:59] VITALS: BMI 28.5
[2018-10-24 15:25] VITALS: TEMP 99.7
[2018-10-24 16:03] VITALS: BP 116/58
--- NOTE | 2018-10-24 17:33 | DIS ---
DATE OF ADMISSION: 10/22/2018 DATE OF DISCHARGE: 10/24/2018 PRIMARY CARE PHYSICIAN: Awais Dias. DISCHARGE DISPOSITION: [facility]. PRIMARY DISCHARGE DIAGNOSES: 1. [id number] myocardial infarction. 2. Diabetic infection of right foot. 3. Severe ischemic resting right leg pain. 4. Hypokalemia. 5. Systemic inflammatory response syndrome. SECONDARY DISCHARGE DIAGNOSES: 1. Advanced peripheral arterial disease. 2. Hypertension. 3. Gastroesophageal reflux disease. 4. Dyslipidemia. 5. Diabetes type 2. 6. Anxiety and depression. 7. Coronary artery disease with history of CABG. PRIMARY PROCEDURE/OPERATION: None. RADIOLOGICAL INVESTIGATION: Chest x-ray showed no acute cardiopulmonary process. SIGNIFICANT LABORATORY DATA: WBC 17.9, hemoglobin 9.8, platelet 545. INR 1.1. Sodium 135, potassium 4.2, BUN 13, creatinine 0.96, calcium 9.8. CRP 24.7, LDL 43, troponin 0.310. Urinalysis, normal. Blood culture, negative. Urine culture, negative. DISCHARGE MEDICATIONS: 1. Amlodipine 10 mg daily. 2. Aspirin 81 mg daily. 3. Lipitor 80 mg p.o. daily. 4. Coreg 25 mg p.o. b.i.d. 5. Colace 100 mg p.o. b.i.d. 6. Cymbalta 60 mg daily. 7. Ferrous sulfate 325 mg t.i.d. 8. Folic acid 1 mg daily. 9. Humulin R 12 units subcu p.m. 10. Hydrochlorothiazide 25 mg p.o. daily. 11. Novolin N 12 units subcu a.m. and 12 units subcu p.m. 12. Lisinopril 20 mg p.o. daily. 13. Ranitidine 150 mg p.o. b.i.d. 14. Brilinta 90 mg p.o. b.i.d. CONTRAINDICATION: None. CODE STATUS: Full code. INPATIENT CONSULT: 1. Dr. Rey was consulted. 2. Dr. Hollingsworth, band top maker, was following while in hospital. TEST RESULT PENDING ON DISCHARGE: None. ALLERGIES: NO KNOWN DRUG ALLERGIES. DISCHARGE PLAN: Posthospital, the patient is discharged to [facility] for higher level of care. HOSPITAL COURSE: A 58-year-old male, who was admitted by Dr. Upton. Please see his H and P for further details. The patient is from [facility]. He came to the hospital with chest pain. His chest pain description was anginal. He had elevated troponin. Overall picture was consistent with non-ST elevation UT. Cardiology was consulted. Cardiology was following while in hospital. He was treated medically. Besides [id number] UT, the patient was having severe resting pain on his right lower extremity with diabetic foot. He had elevated inflammatory markers. He was having leukocytosis with left shift. We started vancomycin and Zosyn. We consulted General Surgery and they agreed with amputation. This patient is already known case of care at [facility] and he has advanced peripheral arterial disease. He was supposed to get amputation there this week. For continuity of care, this patient is transferred to [facility] as bed is available and intermediate system recommends to be transferred him there for surgery. At this point, the patient is medically stable for transfer. He will continue all his medication as above. His vitals are stable for transfer. While in hospital, we were giving him vancomycin and Zosyn, which will be continued there. We have discontinued Brilinta yesterday. Echocardiography was done while in hospital, but official report is not available yet. Please see my progress note from today for further details. I spoke with Dr. Mendez and I am going to update this patient's current hospital course. Whenever arrangement done, then this patient will be transferred for [facility]. Job ID: [id number]
[2018-10-26] MEDS ORDERED: Sodium Chloride 0.9% 1,000 ML IV SCH (08:00)
== END 2018-10-24 20:26 | disposition short-term general hospital (02) | DRG 281 ==
LOC: ERS 22:31 → 2NO 10-22 00:45
PROVIDERS: ADMIT Hospitalist; ATTEND Hospitalist
DX: I21.4 Non-ST elevation (NSTEMI) myocardial infarction (principal); R65.10 Systemic inflammatory response syndrome (SIRS) of non-infectious origin without acute organ dysfunction; E11.52 Type 2 diabetes mellitus with diabetic peripheral angiopathy with gangrene; I96 Gangrene, not elsewhere classified; E11.628 Type 2 diabetes mellitus with other skin complications; L08.9 Local infection of the skin and subcutaneous tissue, unspecified; I70.221 Atherosclerosis of native arteries of extremities with rest pain, right leg; E87.6 Hypokalemia; D64.9 Anemia, unspecified; F41.9 Anxiety disorder, unspecified; F32.9 Major depressive disorder, single episode, unspecified; E78.5 Hyperlipidemia, unspecified; K21.9 Gastro-esophageal reflux disease without esophagitis; I10 Essential (primary) hypertension; I25.2 Old myocardial infarction; Z95.1 Presence of aortocoronary bypass graft; Z87.891 Personal history of nicotine dependence; I25.110 Atherosclerotic heart disease of native coronary artery with unstable angina pectoris; Z95.5 Presence of coronary angioplasty implant and graft; Z79.4 Long term (current) use of insulin; D72.829 Elevated white blood cell count, unspecified
CPT/HCPCS: 36415; 36416; 71045; 80048; 80053; 80061; 81003; 81015; 82550; 82553; 83735; 84132; 84484; 85025; 85610; 86140; 87040; 87086; 93005; J1815; J2270; J2543; J7050